=== PATIENT | male | born 1990 | race Caucasian/White ===

== ENCOUNTER 2017-05-22 09:57 | Emergency (ER) | payer MEDICAID ==
[2017-05-22 10:18] VITALS: RESP 18; TEMP 98
--- NOTE | 2017-05-22 10:32 | EDPHY ---
H & P Stated Complaint: c/o internal fire like itching Time Seen by Provider: 05/22/17 10:22 HPI/ROS: CHIEF COMPLAINT: Itching HISTORY OF PRESENT ILLNESS: The patient is a 26-year-old healthy man who comes to the emergency department because he states every night for the last 2 weeks around 1:00 a.m. he wakes up with itching and has trouble sleeping and he states that it is itching internally and feels like electrical impulses throughout his body. No rashes. No discoloration. No jaundice. No nausea vomiting or diarrhea. No abdominal pain. No no urine symptoms. The patient has not had a fever. He states that on April 21 he was in [place] and received some type of cleanse for his gallbladder and liver where he has frog venom injected into his skin. He did not vomit as he expected to and felt fine for about a week but then began having the symptoms described above. He is concerned about his liver and gallbladder and wants us to draw his blood to check. REVIEW OF SYSTEMS: Constitutional: denies: chills, fever, recent illness, recent injury EENTM: denies: blurred vision, double vision, nose congestion Respiratory: denies: cough, shortness of breath Cardiac: denies: chest pain, irregular heart rate, lightheadedness, palpitations Gastrointestinal/Abdominal: denies: abdominal pain, diarrhea, nausea, vomiting, blood streaked stools Genitourinary: denies: dysuria, frequency, hematuria, pain Musculoskeletal: denies: joint pain, muscle pain Skin: See HPI denies: lesions, rash, jaundice, bruising Neurological: denies: headache, numbness, paresthesia, tingling, dizziness, weakness Hematologic/Lymphatic: denies: blood clots, easy bleeding, easy bruising Immunologic/allergic: denies: HIV/AIDS, transplant EXAM: GENERAL: Well-appearing, well-nourished and in no acute distress. HEAD: Atraumatic, normocephalic. EYES: Pupils equal round and reactive to light, extraocular movements intact, sclera anicteric, conjunctiva are normal. ENT: TMs normal, nares patent, oropharynx clear without exudates. Moist mucous membranes. NECK: Normal range of motion, supple without lymphadenopathy or JVD. LUNGS: Breath sounds clear to auscultation bilaterally and equal. No wheezes rales or rhonchi. HEART: Regular rate and rhythm without murmurs, rubs or gallops. ABDOMEN: Soft, nontender, normoactive bowel sounds. No guarding, no rebound. No masses appreciated. BACK: No CVA tenderness, no spinal tenderness, step-offs or deformities EXTREMITIES: Normal range of motion, no pitting or edema. No clubbing or cyanosis. NEUROLOGICAL: Cranial nerves II through XII grossly intact. Normal speech, normal gait. 5/5 strength, normal movement in all extremities, normal sensation PSYCH: Normal mood, normal affect. SKIN: Warm, dry, normal turgor, no visible rashes or lesions. Source: Patient Exam Limitations: No limitations - Personal History Current Tetanus Diphtheria and Acellular Pertussis (TDAP): Yes - Medical/Surgical History Hx Asthma: No Hx Chronic Respiratory Disease: No Hx Diabetes: No Hx Cardiac Disease: No Hx Renal Disease: No Hx Cirrhosis: No Hx Alcoholism: No Other PMH: TA - Family History Significant Family History: No pertinent family hx - Social History Smoking Status: Never smoked Alcohol Use: Sober Drug Use: None Constitutional: Initial Vital Signs Temperature (C) 36.6 C 05/22/17 10:10 Heart Rate 62 05/22/17 10:10 Respiratory Rate 18 05/22/17 10:10 Blood Pressure 123/84 H 05/22/17 10:10 O2 Sat (%) 98 05/22/17 10:10 O2 Delivery Mode Room Air Allergies/Adverse Reactions: No Known Allergies Allergy (Unverified 05/22/17 10:09) Home Medications: Medication Instructions Recorded NK [No Known Home Meds] 05/22/17 Medical Decision Making ED Course/Re-evaluation: 11:25 a.m. the patient's lab work is reassuring. He is happy with this. I suggested he used CeraVe lotion, a humidifier possibly Benadryl for his itchy skin. He will also follow up with his primary. He declines further workup or testing at this time. Differential Diagnosis: Partial list of the Differential diagnosis considered include but were not limited to; dry skin, allergic reaction, and although unlikely based on the history and physical exam, I also considered liver disease, renal disease. I discussed these differential diagnoses and the plan with the patient as well as the usual and expected course. The patient understands that the diagnosis is provisional and that in medicine we are not always correct and that further workup is often warranted. Usual and customary warnings were given. All of the patient's questions were answered. The patient was instructed to return to the emergency department should the symptoms at all worsen or return, otherwise to followup with the physician as we discussed. - Data Points Laboratory Results: Laboratory Results 05/22/17 10:50 05/22/17 10:50 05/22/17 05/22/17 10:50 10:50 WBC 6.06 10^3/uL 10^3/uL (3.80-9.50) RBC 6.01 10^6/uL 10^6/uL (4.40-6.38) Hgb 17.7 g/dL H g/dL (13.7-17.5) Hct 50.3 % % (40.0-51.0) MCV 83.7 fL fL (81.5-99.8) MCH 29.5 pg pg (27.9-34.1) MCHC 35.2 g/dL g/dL (32.4-36.7) RDW 12.3 % % (11.5-15.2) Plt Count 266 10^3/uL 10^3/uL (150-400) MPV 9.7 fL fL (8.7-11.7) Neut % (Auto) 49.4 % % (39.3-74.2) Lymph % (Auto) 31.5 % % (15.0-45.0) [place] % (Auto) 7.6 % % (4.5-13.0) Eos % (Auto) 9.6 % H % (0.6-7.6) Baso % (Auto) 1.7 % % (0.3-1.7) Nucleat RBC Rel Count 0.0 % % (0.0-0.2) Absolute Neuts (auto) 3.00 10^3/uL 10^3/uL (1.70-6.50) Absolute Lymphs (auto) 1.91 10^3/uL 10^3/uL (1.00-3.00) Absolute Monos (auto) 0.46 10^3/uL 10^3/uL (0.30-0.80) Absolute Eos (auto) 0.58 10^3/uL H 10^3/uL (0.03-0.40) Absolute Basos (auto) 0.10 10^3/uL 10^3/uL (0.02-0.10) Absolute Nucleated RBC 0.00 10^3/uL 10^3/uL (0-0.01) Immature Gran % 0.2 % % (0.0-1.1) Immature Gran # 0.01 10^3/uL 10^3/uL (0.00-0.10) Sodium 142 mEq/L mEq/L (135-145) Potassium 4.5 mEq/L mEq/L (3.5-5.2) Chloride 98 mEq/L mEq/L (97-110) Carbon Dioxide 29 mEq/l mEq/l (22-31) Anion Gap 15 mEq/L mEq/L (8-16) BUN 13 mg/dL mg/dL (7-23) Creatinine 1.1 mg/dL mg/dL (0.7-1.3) Estimated GFR > 60 Glucose 76 mg/dL mg/dL (70-100) Calcium 9.9 mg/dL mg/dL (8.5-10.4) Total Bilirubin 0.9 mg/dL mg/dL (0.1-1.4) Conjugated Bilirubin 0.1 mg/dL mg/dL (0.0-0.5) Unconjugated Bilirubin 0.8 mg/dL mg/dL (0.0-1.1) AST 28 IU/L IU/L (17-59) ALT 32 IU/L IU/L (21-72) Alkaline Phosphatase 52 IU/L IU/L (38-126) Total Protein 7.1 g/dL g/dL (6.3-8.2) Albumin 4.3 g/dL g/dL (3.5-5.0) Departure - Departure Disposition: Home, Routine, Self-Care Clinical Impression: Pruritus Condition: Fair Instructions: Itchy Skin (ED) Referrals: NONE *PRIMARY CARE P,. [Primary Care Provider] - As per Instructions Adelso Fam MD [Medical Doctor] - 2-3 days, call for appt.
[2017-05-22 10:53] LABS: PLATELET COUNT 266 10^3/uL (150-400)
[2017-05-22 11:23] VITALS: O2SAT 96
[2017-05-22 13:31] VITALS: BP 134/62; PULSE 65
== END 2017-05-22 11:39 | disposition home or self-care (01) ==
LOC: CED 09:57
DX: L29.9 Pruritus, unspecified (principal)
CPT/HCPCS: 80048-PO; 80076-PO; 85025-PO

== ENCOUNTER 2017-05-29 19:47 | Emergency (ER) | payer MEDICAID ==
[2017-05-29 19:57] VITALS: BP 124/76; PULSE 92; RESP 16; TEMP 97.5; O2SAT 95
--- NOTE | 2017-05-29 20:19 | EDPHY ---
H & P Stated Complaint: Poss broken/sprained L ankle HPI/ROS: HPI CHIEF COMPLAINT: Left ankle pain, left ankle swelling. HISTORY OF PRESENT ILLNESS: Patient is a 26-year-old male, otherwise healthy no significant medical history does not take any daily medications he presents emergency room with left lateral ankle pain and swelling. He states he was playing soccer and rolled his ankle now has left lateral ankle pain swelling. He is able to bear weight but has discomfort. Denies any other areas of pain. No knee pain. No foot pain. Past Medical History: No significant medical history Past Surgical History: No significant surgical history Social History: Denies daily use of drugs alcohol tobacco Family History: Noncontributory ROS REVIEW OF SYSTEMS: A comprehensive 10 point review of systems is otherwise negative aside from elements mentioned in the history of present illness. Exam Constitutional triage nursing summary reviewed, vital signs reviewed, awake/ alert. Eyes normal conjunctivae and sclera, EOMI, PERRLA. HENT normal inspection, atraumatic, moist mucus membranes, no epistaxis, neck supple/ no meningismus, no raccoon eyes. Respiratory clear to auscultation bilaterally, normal breath sounds, no respiratory distress, no wheezing. Cardiovascular rate normal, regular rhythm, no murmur, no edema, distal pulses normal. Gastrointestinal soft, non-tender, no rebound, no guarding, normal bowel sounds, no distension, no pulsatile mass. Genitourinary no CVA tenderness. Musculoskeletal left lower extremity: Good distal pulse. Good cap refill. Swelling and tenderness over the left lateral malleolus. Full range of motion of left ankle. no midline vertebral tenderness, full range of motion, no calf swelling, no tenderness of extremities, no meningismus, good pulses, neurovascularly intact. Skin pink, warm, & dry, no rash, skin atraumatic. Neurologic awake, alert and oriented x 3, AAOx3, moves all 4 extremities equally, motor intact, sensory intact, CN II-XII intact, normal cerebellar, normal vision, normal speech. Psychiatric normal mood/affect. Heme/Lymph/Immune no lymphadenopathy. Differential Diagnosis: Includes but is not limited to in a particular order, ankle sprain high-grade, ankle contusion, ankle fracture, chip fracture, ankle dislocation Medical Decision Making: Plan for this patient x-ray left ankle, Edwards for pain control here in emergency room, ice pack. Re-evaluation: Will plan on giving crutches, walking boot, Edwards for pain control at home and ibuprofen. Referral to Orthopedics. He has high-grade ankle sprain. Will need follow-up. X-ray reviewed of the left ankle. Soft tissue swelling noted. No dislocation. No fracture. Image interpreted by myself. Walking boot and crutches provided. Orthopedic referral given. Source: Patient - Personal History Current Tetanus/Diphtheria Vaccine: Yes Current Tetanus Diphtheria and Acellular Pertussis (TDAP): Yes - Medical/Surgical History Hx Asthma: No Hx Chronic Respiratory Disease: No Hx Diabetes: No Hx Cardiac Disease: No Hx Renal Disease: No Hx Cirrhosis: No Hx Alcoholism: No Hx HIV/AIDS: No Hx Splenectomy or Spleen Trauma: No Other PMH: TA - Social History Smoking Status: Never smoked Constitutional: Initial Vital Signs Temperature (C) 36.4 C 05/29/17 19:53 Heart Rate 92 05/29/17 19:53 Respiratory Rate 16 05/29/17 19:53 Blood Pressure 124/76 H 05/29/17 19:53 O2 Sat (%) 95 05/29/17 19:53 O2 Delivery Mode Room Air Allergies/Adverse Reactions: Penicillins Allergy (Verified 05/29/17 19:57) sulfamethoxazole [From Decra] Allergy (Verified 05/29/17 19:57) trimethoprim [From Decra] Allergy (Verified 05/29/17 19:57) Home Medications: Medication Instructions Recorded Hydrocodone/APAP 5/325 [Edwards 1 - 2 tab PO Q4H PRN #10 tab 05/29/17 5/325] Ibuprofen [Motrin (*)] 800 mg PO Q6-8PRN #10 tab 05/29/17 Medical Decision Making - Data Points Medications Given: Discontinued Medications Hydrocodone Bitart/Acetaminophen (Edwards 5/325mg Prepack#6) 1 btl TAKEHOME EDNOW ONE Stop: 05/29/17 20:24 Last Admin: 05/29/17 20:37 Dose: 1 btl Hydrocodone Bitart/Acetaminophen (Edwards 5/325) 1 tab PO EDNOW ONE Stop: 05/29/17 20:24 Last Admin: 05/29/17 20:39 Dose: Not Given Hydrocodone Bitart/Acetaminophen (Edwards 5/325) 1 tab PO EDNOW ONE Stop: 05/29/17 20:24 Last Admin: 05/29/17 20:37 Dose: 1 tab Departure - Departure Disposition: Home, Routine, Self-Care Clinical Impression: Ankle sprain Qualifiers: Encounter type: initial encounter Involved ligament of ankle: unspecified ligament Laterality: left Qualified Code(s): S93.402A - Sprain of unspecified ligament of left ankle, initial encounter Condition: Good Instructions: Ankle Sprain (ED) Additional Instructions: 1. Elevate her leg. 2. Ice her ankle. 3. Ibuprofen for mild pain Edwards for severe pain 4. Follow up with Orthopedics. 5. Crutches and walking boot for comfort and pain control Referrals: NONE *PRIMARY CARE P,. [Primary Care Provider] - As per Instructions Rigoberto Briones MD [Medical Doctor] - As per Instructions Prescriptions: Hydrocodone/APAP 5/325 [Edwards 5/325] 1 - 2 tab PO Q4H PRN #10 tab PRN Reason: Pain, Moderate Ibuprofen [Motrin (*)] 800 mg PO Q6-8PRN #10 tab
[2017-05-29] MEDS ORDERED: HYDROCODONE/APAP 5/325 TAB PO ONE ×2 (20:23)
[2017-05-29] MEDS ORDERED: HYDROCOD/APAP 5/325 PREPACK#6 BTL TAKEHOME ONE (20:23)
== END 2017-05-29 20:46 | disposition home or self-care (01) ==
DX: S93.402A Sprain of unspecified ligament of left ankle, initial encounter (principal); X58.XXXA Exposure to other specified factors, initial encounter; Y99.8 Other external cause status; Y93.66 Activity, soccer
CPT/HCPCS: L4386